=== PATIENT | male | born 1975 | race Caucasian/White ===

== ENCOUNTER → 2019-07-11 | Outpatient (CLI) | payer OTHER ==
--- NOTE | 2019-07-11 17:18 | KCIC ---
EXAM: MRI LEFT KNEE DATE: 07/11/2019 2:45 PM CLINICAL INDICATION: Left knee pain COMPARISON: 07/05/2019 radiographs TECHNIQUE: Multiplanar, multisequence MRI of the left knee was performed without contrast. FINDINGS: Small left knee joint effusion. Small multiloculated parameniscal cyst or atypical Ly's cyst, arising medial to the semimembranosus tendon, abutting the sartorius and gracilis tendons. Chronic appearing tear of the ACL with the visualized fibers in an antiparallel orientation relative to the intercondylar roof. PCL is intact. Mild increased signal about the MCL may be reactive from adjacent meniscal tear. The fibular collateral ligament, biceps femoris, IT band and popliteus are intact, normal in signal and morphology. Medial meniscus: There is an oblique tear at the posterior horn with associated radial tear extending from the body to the posterior horn-root. Lateral meniscus: Intact The extensor mechanism is intact. Neutral patellar tracking. Full-thickness cartilage defect at the medial femoral condyle with subchondral marrow edema measures 1.4 cm in transverse dimension. Full-thickness cartilage defect at the medial aspect of the medial tibial plateau measures 1 cm with mild subchondral edema. Intermittent fissuring lateral tibial plateau with subchondral edema. Tricompartmental osteophytes are seen. No evidence for fracture or osteonecrosis. IMPRESSION: 1. Chronic appearing ACL tear at the femoral attachment 2. Left knee joint osteophytes arthritis with regions of chondral effacement medial compartment and tricompartmental osteophytes. 3. Medial meniscal tear extends from the body to the posterior horn with oblique and radial components. 4. Multiloculated cystic structure at the posterior medial aspect of the knee may represent a para meniscal cyst or atypical location for Ly's cyst. Electronically signed by: Sky Kapadia MD (07/11/2019 5:16 PM) [facility]
== END | disposition home or self-care (01) ==
LOC: KCIC MRI 14:35
PROVIDERS: ATTEND Orthopaedic Surgery Sports Medicine
DX: S83.242A Other tear of medial meniscus, current injury, left knee, initial encounter (principal); M17.12 Unilateral primary osteoarthritis, left knee; M25.762 Osteophyte, left knee; M25.462 Effusion, left knee; X58.XXXA Exposure to other specified factors, initial encounter; Y93.89 Activity, other specified; Y92.89 Other specified places as the place of occurrence of the external cause; Y99.8 Other external cause status
CPT/HCPCS: 73721

== ENCOUNTER 2019-08-08 06:10 | Day surgery (SDC) | payer OTHER ==
[~2019-08-08] VITALS: Ht 180.3 cm; Wt 90.0 kg
[2019-08-08] MEDS ORDERED: PROPOFOL 20 ML IV ONE (06:46)
[2019-08-08] MEDS: IV RINGERS,LACTATED 1000ML 1,000 ML IV SCH ×2 (06:46→10:29)
[2019-08-08] MEDS ORDERED: fentaNYL PF VIAL 100 MCG/2 ML VIAL ONE (06:46)
[2019-08-08] MEDS ORDERED: LIDOCAINE 2% PF 5 ML VIAL. ONE (06:46)
[2019-08-08] MEDS ORDERED: LIDOCAINE 1% PF 30 ML VIAL. ONE (06:59)
[2019-08-08] MEDS ORDERED: EPINEPHrine VIAL 30 MG/30 ML VIAL ONE (07:00)
[2019-08-08] MEDS ORDERED: ONDANSETRON PF 4 MG/2 ML VIAL. IV PRN (07:00)
[2019-08-08] MEDS ORDERED: HYDROmorphone 2 MG/ML VIAL IV PRN (07:00)
[2019-08-08] MEDS ORDERED: LIDOCAINE 1% PF 2 ML VIAL. ID PRN (07:00)
[2019-08-08] MEDS ORDERED: MORPHINE SULFATE 2 MG/ML VIAL. IV PRN (07:00)
[2019-08-08] MEDS ORDERED: BUPIVACAINE MPF 0.5% 30 ML VIAL. ONE (07:00)
[2019-08-08] MEDS ORDERED: fentaNYL PF VIAL 100 MCG/2 ML VIAL IV PRN (07:00)
[2019-08-08] MEDS ORDERED: PROCHLORPERAZINE 10 MG/2 ML VIAL. IV PRN (07:00)
[2019-08-08] MEDS ORDERED: SEVOFLURANE 61 TO 120 MINUTES. IH ONE (07:40)
[2019-08-08] MEDS ORDERED: DEXAMETHASONE SOD PHOS 4 MG/ML VIAL ONE (07:40)
[2019-08-08] MEDS ORDERED: ONDANSETRON PF 4 MG/2 ML VIAL. ONE (07:40)
[2019-08-08] MEDS ORDERED: KETOROLAC 30 MG/ML VIAL. ONE (07:47)
[2019-08-08] MEDS ORDERED: ceFAZolin 2GM PREMIX 2 GM/50 ML BAG IV ONE (08:00)
--- NOTE | 2019-08-08 09:39 | DISCH ---
DISCHARGE INSTRUCTIONS Condition on Discharge Condition on Discharge: Stable Activity After Discharge Activity Instructions for Disc: Other ROM activity Other activity instructions: nonweightbearing, frequent bending and straightening of the Bathing Instructions: Shower-keep dressing dry Weight Bearing Status after Di: Non weight bearing Diet after Discharge Diet after Discharge: Regular Wound Incision Care Wound/Incision Care: Ice to area for comfort, Keep wound/cast CDI, Change dressing Other wound/incision instructi: okay to change dressing after [address] after DC Call your doctor for: Concerns you may have Follow-Up Follow up with: Mohit in 2 weeks ROSHNI BEAN II, MD Aug 08, 2019 09:39
--- NOTE | 2019-08-08 09:52 | PDOC4 ---
Operative Note Operative Note Date of procedure: 08/08/2019 Surgeon: Rehan Bean Asst.: Calvin Alexis and Luisana Juárez Preoperative diagnosis: Left knee ACL tear Left knee cartilage injury Postoperative diagnosis: Complete left knee ACL tear Full-thickness cartilage defect left knee Procedures performed #1 arthroscopic autograft with allograft augmentation left ACL reconstruction #2 arthroscopic microfracture of left knee Anesthesia: Gen. 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 He had tried rehabbing his knee and different braces but these did not help his instability. He really only had pain during instability episodes otherwise, he did not feel any complaints at his knee. We discussed the above procedure and he wished to proceed. Description of procedure: Patient was greeted in the preoperative area by myself for the correct extremity was verified and marked. He was taken to the operative suite and his antibiotics were started as he was brought back. Once in the operating room, he was transferred gently supine to the operating table and secured the bed with all pressure points padded. Successful induction of a general anesthetic. Examination under anesthesia of his left knee revealed his knee was stable to varus and valgus at 0 and 30, he had a positive Sunita without endpoint and a positive pivot shift. A nonsterile tourniquet was taped in place to his left upper thigh. A padded bump laterally at his hip was applied and secured the bed as was a padded rest across for the bed to maintain his knee at 90 passively. The left lower extremity was prepped and draped in her usual sterile fashion we conducted our standard preoperative timeout. I then palpated and marked surface anatomy and tian a line for my incisions. Extremity was exsanguinated with an Esmarch and tourniquet insufflated to 250 mmHg. After th is, I incised skin over his proximal medial tibial region for my hamstring harvest, I dissected subcutaneous tissues tissue with Metzenbaums and using electrocautery to cauterize any bleeders. Identified the sartorial fascia and palpated for the hamstring tendons, incised the sartorial fascia just proximal to this and took the hamstring down, both of them, off of the tibia, clamping them with a 90 clamp. I then released the overlying fascia and the hamstring tendons, each one had a clamp applied to it. I then bluntly dissected the adherent tissue off of these as well as removed any intertendinous connections. I then used a #2 ultra braid in a running whipstitch at both tendons and deliver them from the leg using a closed-end tendon stripper. The g rafts were prepared on the back table by my email marketing assistant who denuded them, after I had cut them to 22 cm. We have provisionally sized the graft, they were about 7- 1/2 at the femoral side, so I opted to augment this graft with a strip of peroneal's longus. After this was thought, I incised the tendon in the midportion and splinted using a string cheese technique, this graft was then cut to 22 cm and prepared in the above manner as well. We then sized the grafts, I attempts to the femur and an 11 at the tibia. We then wrapped the grafts throughout her Endobutton loop and applied the Endobutton tension device on the graft prep board and secured the grafts on tension and wrapped in moist lap sponge. While the grafts were being prepared, I was conducted my diagnostic arthroscopy after I incised skin for lateral portal and introduced a blunt arthroscopic trocar into the suprapatellar pouch followed by the camera. I immediately noted a small loose bodies throughout the knee. I then inspected his knee, starting at the patellofemoral joint, lateral gutter, medial gutter, and upon entering medial compartment I used a spinal needle to localize an a nteromedial portal and incised skin in accordance with this and then introduce the blunt arthroscopic probe and conducted my diagnostic arthroscopy with above noted findings. I then spent time removing some of the loose bodies and taking down the ACL, taking care to preserve the meniscus. I then inspected the cartilage defect and remove the loose flap of cartilage at this and prepared this with a curet to remove the calcified layer. After this, I directed my attention to removing the remainder of the ACL, taking care to preserve the intrameniscal ligament. I took down some bone at the notch for improved visualization. I inspected his ACL footprint from the anteromedial portal. I then used my tip aimer to localize my ACL tibial footprint, referencing his tracie ve anatomy and the anterior horn of the lateral meniscus. An email marketing assistant then inserted the Beath pin through this and drilled it. After this, I protected the tip of the Beath pin with a curet and we drilled for our tibial tunnel, the bone debris was removed and a plug was inserted. After this, an email marketing assistant held the knee in maximal flexion while used a 7 mm [id number] guide I initially just drilled with my Beath pin, removed all instruments and inspected this position from a an anteromedial portal and decided was a little too anterior so we again reintroduced the [id number] guide and I positioned my tunnel more more posterior to my initial marked. The Beath pin was advanced bicortically followed by the Endobutton reamer. I removed some bony debris at this point, and measured the tunnel. After this I reintroduced the Beath pin followed by drilling for my femoral tunnel, all this again was done in the hyperflexion position. After this, I removed loose bony debris and inspected my tunnel from an anteromedial portal and was happy with the tunnel. We then reintroduced the Beath pin out through skin at his distal lateral thigh and used this to shuttle the FiberWire through it was then pulled through the tibial tunnel with a loop grasper. I then used this to shuttle the Endobutton passing sutures through both tunnels and then tensioned and pulled the graft into place confirming good toggle with the Endobutton which diminished on maximal back retraction of the graft. After this, I'll tension on the graft repeatedly cycled the knee. We then introduce a nitinol wire after spreading the limbs apart and impacted the tunnel locked into position after tensioning and cycling. After this, , I removed the insertion device and the nitinol wire and inspected my graft position after placing the camera back into the knee and was happy with the position, noted no impingement. I then cut the limbs of the graft at the tibial side adjacent to the fixation device. He had a negative Sunita with a solid endpoint. The Endobutton passing sutures were cut at skin as well. I then reintroduced the camera removed any loose bony debris I then microfractured at his medial femoral condyle and a couple more at his very medial aspect of his medial tibial plateau adjacent to his meniscus. After this, the camera and shaver were introduced into the suprapatellar pouch and I removed all loose debris with vigorous palpation of the posterior knee from my email marketing assistant while I aspirated to repeatedly through the shaver. I then removed all excess arthroscopic fluid and the arthroscopic interpretation. We then closed the sartorial fascia with simple interrupted #2 Vicryl followed by inverted interrupted 2-0 Vicryl for subcutaneous tissue at the tibial incision followed by 4-0 Monocryl in a running subcuticular fashion. 3-0 nylon in a simple interrupted fashion was used to close the portal incisions. The leg was cleansed and dried and a sterile soft bulky dressings applied followed by an Dante wrap and hinged knee brace set at 0-90. He is awake from anesthesia, he was transferred gently supine to the recovery room cart and taken to PACU in a stable next bit condition. All counts correct 2 prior to wound closure. He tolerated surgery well. No complications. Postoperative plan is to discharge him home, nonweightbearing for 6 weeks without, importance of frequent range of motion was discussed. [place] I'll see him back in 2 weeks, sooner should a problem arise. REHAN BEAN II, MD Aug 08, 2019 09:52
[2019-08-08] MEDS ORDERED: MORPHINE SULFATE 4 MG/ML VIAL. ONE (10:08)
[2019-08-08] MEDS ORDERED: MORPHINE SULFATE 4 MG/ML VIAL. IV ONE (10:20)
[2019-08-08] MEDS: fentaNYL PF VIAL 100 MCG/2 ML VIAL IV PRN ×2 (10:30→11:04)
[2019-08-08] MEDS ORDERED: HYDR-2761 PO (10:36)
[2019-08-08] MEDS ORDERED: ONDA8TAB9 PO (10:37)
[2019-08-08] MEDS ORDERED: HYDROcodone/APAP 5/325MG 1 TAB TABLET PO ONE (11:00)
[2019-08-08 11:05] VITALS: BP 143/83
== END 2019-08-08 12:03 | disposition home or self-care (01) ==
LOC: SURG 06:10
PROVIDERS: ATTEND Orthopaedic Surgery Sports Medicine
DX: S83.512A Sprain of anterior cruciate ligament of left knee, initial encounter (principal); M94.8X6 Other specified disorders of cartilage, lower leg; Z72.89 Other problems related to lifestyle; X58.XXXA Exposure to other specified factors, initial encounter; Y93.89 Activity, other specified; Y92.89 Other specified places as the place of occurrence of the external cause; Y99.8 Other external cause status
CPT/HCPCS: 29879; 29888; A7015; C1713; C1763; J0171; J0696; J0780; J1100; J1885; J2001; J2270; J2405; J2704; J3010; J3490; J7120

== ENCOUNTER 2019-12-16 08:34 | Emergency (ER) | payer OTHER ==
[~2019-12-16] VITALS: Ht 177.8 cm; Wt 95.4 kg
[~2019-12-16 08:34] MED LIST: HYDR-2761 PO; ONDA8TAB9 PO
[2019-12-16 08:40] VITALS: BP 138/97
[2019-12-16] MEDS ORDERED: CYCL10TA2 PO (08:49)
--- NOTE | 2019-12-16 08:49 | PHYS DOC ---
Adult General Chief Complaint Chief Complaint: SHOULDER INJURY HPI HPI Patient is a 44 year old male who presents with complaint of right upper thoracic pain. Was lifting weights 3 days ago and felt a slight twinge and since that time he has had worsening symptoms. His pain is worse with movement. Has been taking ibuprofen without much relief. No numbness or tingling distally. Review of Systems Review of Systems All other systems were reviewed and found to be within normal limits, except as documented in this note. Allergies Allergies Allergies Coded Allergies Type Severity Reaction Last Updated Verified No Known Drug Allergies 08/08/19 No Physical Exam Physical Exam Constitutional: Well developed, well nourished, no acute distress, non-toxic appearance. [] HENT: Normocephalic, atraumatic, bilateral external ears normal, oropharynx moist, no oral exudates, nose normal. [] Eyes: PERRLA, EOMI, conjunctiva normal, no discharge. [] Neck: Normal range of motion, no tenderness, supple, no stridor. [] Cardiovascular:Heart rate regular rhythm, no murmur [] Lungs & Thorax: Bilateral breath sounds clear to auscultation [] Skin: Warm, dry, no erythema, no rash. [] Back: He has point tenderness to the right upper thoracic region consistent with muscle strain Extremities: No tenderness, no cyanosis, no clubbing, ROM intact, no edema. [] Neurologic: Alert and oriented X 3, normal motor function, normal sensory function, no focal deficits noted. [] Psychologic: Affect normal, judgement normal, mood normal. [] EKG EKG [] Radiology/Procedures Radiology/Procedures [] Course & Med Decision Making Course & Med Decision Making Pertinent Labs and Imaging studies reviewed. (See chart for details) [] Dragon Disclaimer Dragon Disclaimer This electronic medical record was generated, in whole or in part, using a voice recognition dictation system. Departure Departure Impression: Primary Impression: Strain of muscle and tendon of back wall of thorax, initial encounter Disposition: 01 HOME, SELF-CARE Condition: STABLE Referrals: NO PCP (PCP) Patient Instructions: Muscle Strain Scripts Cyclobenzaprine Hcl (CYCLOBENZAPRINE HCL) 10 Mg Tablet 1 TAB PO TID, #21 TAB Prov: ZACARIAS NORWOOD DO 12/16/19 ZACARIAS NORWOOD DO Dec 16, 2019 08:49
== END 2019-12-16 09:00 | disposition home or self-care (01) ==
LOC: ER 08:34
DX: S29.012A Strain of muscle and tendon of back wall of thorax, initial encounter (principal); X50.0XXA Overexertion from strenuous movement or load, initial encounter; Y93.89 Activity, other specified; Y92.89 Other specified places as the place of occurrence of the external cause; Y99.8 Other external cause status
CPT/HCPCS: 99283